=== PATIENT | male | born 1970 | race Caucasian/White ===

== ENCOUNTER 2019-04-01 21:04 | Observation (INO) | payer OTHER ==
[~2019-04-01] VITALS: Ht 177.8 cm; Wt 95.0 kg
[2019-04-02] VITALS (7 sets, daily range): BP systolic 113–131; BP diastolic 67–79; PULSE 50–67; RESP 18–20; Ht 177.8 cm; Wt 95.0 kg
--- NOTE | 2019-04-02 03:07 | ERD ---
ER Documentation Chief Complaint Chief Complaint INTERMITTENT CHEST DISCOMFORT X 1 WEEK, DX'D WITH "AN" ARRYTHMIA? HPI This a 48-year-old male with intermittent chest discomfort on and off for the past week that are worse today. Pain is pressure-like substernal nonexertional position no exacerbating relieving factors. Denies fevers or chills. Denies nausea vomiting. Denies any palpitations. Denies any other current complaints. ROS All systems reviewed and are negative except as per history of present illness. Allergies Allergies: Coded Allergies: No Known Allergy (Unverified , 04/01/19) PMhx/Soc Medical and Surgical Hx: pt denies Surgical Hx History of Surgery: No Anesthesia Reaction: No Hx Neurological Disorder: No Hx Respiratory Disorders: No Hx Cardiac Disorders: Yes (HTN) Hx Psychiatric Problems: No Hx Miscellaneous Medical Probl: No Hx Alcohol Use: No Hx Substance Use: No Hx Tobacco Use: No Smoking Status: Never smoker Physical Exam Vitals Vital Signs Date Temp Pulse Resp B/P (MAP) Pulse Ox O2 O2 Flow FiO2 Time Delivery Rate 04/02/19 97.9 59 18 106/57 100 02:28 (73) 04/01/19 97.9 78 18 165/85 100 21:08 (111) Physical Exam Const: No acute distress Head: Atraumatic Eyes: Normal Conjunctiva ENT: Normal External Ears, Nose and Mouth. Neck: Full range of motion. No meningismus. Resp: Clear to auscultation bilaterally Cardio: Regular rate and rhythm, no murmurs Abd: Soft, non tender, non distended. Normal bowel sounds Skin: No petechiae or rashes Back: No midline or flank tenderness Ext: No cyanosis, or edema Neur: Awake and alert Psych: Normal Mood and Affect Result Diagram: 04/01/19224904/01/192249 Results 24 hrs Laboratory Tests Test 04/01/19 22:50 White Blood Count 9.0 10^3/ul Red Blood Count 4.43 10^6/ul Hemoglobin 14.1 g/dl Hematocrit 40.2 % Mean Corpuscular Volume 90.7 fl Mean Corpuscular Hemoglobin 31.8 pg Mean Corpuscular Hemoglobin Concent 35.1 g/dl Red Cell Distribution Width 12.2 % Platelet Count 262 10^3/UL Mean Platelet Volume 11.7 fl Immature Granulocytes % 0.200 % Neutrophils % 64.1 % Lymphocytes % 21.2 % Monocytes % 11.2 % Eosinophils % 2.5 % Basophils % 0.8 % Nucleated Red Blood Cells % 0.0 /100WBC Immature Granulocytes # 0.020 10^3/ul Neutrophils # 5.8 10^3/ul Lymphocytes # 1.9 10^3/ul Monocytes # 1.0 10^3/ul Eosinophils # 0.2 10^3/ul Basophils # 0.1 10^3/ul Nucleated Red Blood Cells # 0.0 10^3/ul Sodium Level 141 mmol/L Potassium Level 3.9 mmol/L Chloride Level 105 mmol/L Carbon Dioxide Level 27 mmol/L Anion Gap 9 Blood Urea Nitrogen 28 mg/dl Creatinine 1.50 mg/dl Est Glomerular Filtrat Rate mL/min 50 mL/min Glucose Level 124 mg/dl Calcium Level 9.1 mg/dl Total Bilirubin 0.4 mg/dl Direct Bilirubin 0.00 mg/dl Indirect Bilirubin 0.4 mg/dl Aspartate Amino Transf (AST/SGOT) 37 IU/L Alanine Aminotransferase (ALT/SGPT) 34 IU/L Alkaline Phosphatase 98 IU/L Troponin I < 0.012 ng/ml B-Type Natriuretic Peptide 36 PG/ML Total Protein 8.1 g/dl Albumin 4.3 g/dl Globulin 3.80 g/dl Albumin/Globulin Ratio 1.13 Procedures/MDM EKG: Rate/Rhythm: [Normal Sinus Rhythm] QRS, ST, T-waves: [No changes consistent w/ acute ischemia] Impression: [No evidence of ischemia or arrhythmia] Chest X-ray 1V Interpreted by me: Soft Tissue: No acute abnormalities Bones: No acute abnormalities Mediastinum/Cardiac Silhouette/Lungs: [No acute abnormalities] Patient's symptoms are concerning for cardiac cause will require inpatient workup and continuous monitoring. Further w/u for ischemia, arrhythmia, PE or dissection will be deferred to the inpatient team. Accepting Care Team: Current data and ongoing care discussed. Time: 3 AM Primary Provider: Dr. Meehan Consulting: Deferred to inpatient team Outstanding Data: none Departure Diagnosis: Primary Impression: Chest pain Chest pain type: unspecified Qualified Codes: R07.9 - Chest pain, unspecified Condition: Serious GREG GARCIA Apr 02, 2019 03:07
[2019-04-02] MEDS ORDERED: ACETAMINOPHEN 325 MG TAB PO PRN ×2 (03:30→10:00)
[2019-04-02] MEDS ORDERED: ONDANSETRON 4 MG INJ IV PRN ×2 (03:30→10:00)
[2019-04-02] MEDS ORDERED: NACL 0.9% 3 ML SYG IV SCH (10:00)
--- NOTE | 2019-04-02 11:33 | QN ---
Documentation Comment PT SEEN and examiend HUANG MEYERS MD Apr 02, 2019 11:33
[2019-04-02] MEDS ORDERED: AL HYDROX/MG HYDROX/SIMETH 30 ML CUP PO PRN (12:00)
[2019-04-02] MEDS ORDERED: PANTOPRAZOLE (EC) 40 MG TAB PO SCH (12:30)
--- NOTE | 2019-04-02 14:07 | HP ---
DATE OF ADMISSION: 04/02/2019 REASON FOR ADMISSION: Chest discomfort. HISTORY OF PRESENTING ILLNESS: This is a 48-year-old male with a past medical history of hypertensio n who presented to the emergency department complaining of chest soreness and chest discomfort for th e past 2 to 3 days. According to the patient, he has been seeing his primary care doctor and had cheri d him he had some heartburn issues. He was told that he had inflammation of the esophagus. He is cu rrently not on medication though. He was also seen by compliance field technician as an outpatient and was told sumaya t he had abnormal heart rhythm. For the last 2 to 3 days, he has been having intermittent left-sided chest discomfort, lot of burping, some gastric reflux which made him worried and came to the emergen cy department. The patient has been working in the gym for the last 3 to 4 months and has good exerc ise tolerance. Yesterday, the patient said that he had some spicy food at the [employer] [place] [employer] [place] this probably made it worse lately. Lately, he had been feeling woozy with this medication amlodip ine which was started. Denies any nausea, vomiting. Denies any hematemesis, any melena, any bright red per rectum. Denies any shortness of breath, any lower extremity edema. On arrival to ED, [facility] temperature was 97.9, pulse 78, respirations 18, initial blood pressure was 165/85. Troponin was 0 .024, CK 219, creatinine 1.5. LFTs within normal limit. The patient had chest x-ray that showed no acute cardiopulmonary abnormality. EKG showed right bundle branch block and the patient was admitted for further management. PAST MEDICAL HISTORY: 1. Hypertension. 2. GERD. ALLERGIES: None. PAST SURGICAL HISTORY: He has a right foot surgery. SOCIAL HISTORY: Denies any history of smoking, alcohol or any drug use. FAMILY HISTORY: Significant for diabetes in the mother. REVIEW OF SYSTEMS: The patient complained of some heartburn issues, some bloating. Denies any hemat emesis, any melena, any bright red blood per rectum. Denies any headache, any blurry vision. Denies any focal neurological deficits. Denies any shortness of breath, any lower extremity edema. PHYSICAL EXAMINATION: VITAL SIGNS: Currently, blood pressure 128/79, heart rate of 58, afebrile, respiratory rate 20. GENERAL: The patient is awake, alert, oriented, very muscular built. HEENT: Pupils are equal, round, reactive to light. NECK: Supple. No JVD. HEART: Regular rate and rhythm. LUNGS: Clear to auscultate bilaterally. ABDOMEN: Soft, nontender, nondistended. Some positive bowel sounds. EXTREMITIES: No clubbing, cyanosis or edema. LABORATORY DATA: Creatinine of 1.50. Troponin less than 0.024. White count 9.0, hemoglobin 14.1. DIAGNOSTIC DATA: Chest x-ray is negative. EKG showed right bundle branch block. ASSESSMENT AND PLAN: This is a 48-year-old male who presented with: 1. Left-sided chest discomfort after eating with [place] food and history of gastroesophageal reflu x disease. EKG shows right bundle branch block. Chest x-ray is within normal limit. Need to rule ou t acute coronary syndrome versus gastritis and esophagitis. 2. Elevated creatinine. I do not have any baseline creatinine. The patient is very muscular. We n eed check for statin levels. 3. Hypertension. PLAN: At this period of time, the patient will be admitted to telemetry. We will continue the patie nt on aspirin, PPI, Mylanta. We will get an echo, get serial troponins. We will call cardiology con sultation and GI consultation. Rest of the treatment will depend on the patient's hospitalization thong rodriguez. Dictated By: HUANG AL/DORIE Conf#: [id number] DID#: [id number] CC: MARTIN MARSHALL MD; ANTONIA MURPHY MD;*End*
[2019-04-02] MEDS ORDERED: NITROGLYCERIN (SL) 0.4 MG TAB SL PRN (14:30)
--- NOTE | 2019-04-02 17:12 | CONS ---
Assessment/Plan Assessment/Plan Hospital Course (Demo Recall) Summary Assessment and Plan: Assessment: Chest pain -Cardiac vs GI etiology- patient states pain has improve with PPI History of GERD History of irregular heart rhythm? Hypertension-takes losartan/Norvasc at home Plan: Allow cardiac work-up if negative will proceed with EGD when cleared by cardio PPI/Carafate Further recommendations based on clinical course Patient seen in collaboration with Dr. Cardenas CC: JERRY CARDENAS MD ; Consultation Date/Type/Reason Admit Date/Time Apr 02, 2019 at 03:05 Date of Consultation: Apr 02, 2019 Type of Consult GI Reason for Consultation Chest pain Date/Time of Note DATE: 04/02/19 TIME: 16:56 Hx of Present Illness This is a 48-year-old male with past medical history of hypertension who was admitted for chest pain discomfort x2 to 3 days. He was previously seen by cardiology as an outpatient and told he had abnormal rhythm. Of note for the past few days patient has been complaining of reflux, burping and intermittent left-sided chest discomfort. Patient notes pain is worse with spicy food. He is currently not on any medication for reflux symptoms. He was previously told by his primary care doctor that he had GERD with inflammation of the esophagus. He currently denies nausea/vomiting, hematemesis, melena, or hematochezia. Past Medical History Home Meds No Active Prescriptions or Reported Meds Medications Current Medications IV Flush (NS 3 ml) 3 ml PER PROTOCOL IV ; Start 04/02/19 at 10:00 Ondansetron HCl (Zofran Inj) 4 mg Q6H PRN IV NAUSEA/VOMITING; Start 04/02/19 at 10:00 Acetaminophen (Tylenol Tab) 650 mg Q6H PRN PO .PAIN 1-3 OR TEMP; Start 04/02/19 at 10:00 Pantoprazole (Protonix Tab) 40 mg DAILY@06 PO Last administered on 04/02/19at 13:30; Admin Dose 40 MG; Start 04/02/19 at 12:30 Aspirin (Halfprin) 81 mg DAILY PO ; Start 04/03/19 at 09:00 Al Hydrox/Mg Hydrox/Simethicone (Mag-Al Plus) 30 ml Q4H PRN PO GASTROINTESTINAL UPSET; Start 04/02/19 at 12:00 Nitroglycerin (Nitroglycerin (Sl Tab) 0.4 Mg) 1 tab Q5M PRN SL ANGINA; Start 04/02/19 at 14:30 Allergies: Coded Allergies: No Known Allergy (Unverified , 04/02/19) Social History Smoking Status: Never smoker Exam/Review of Systems Exam Vitals Vital Signs Date Temp Pulse Resp B/P (MAP) Pulse Ox O2 O2 Flow FiO2 Time Delivery Rate 04/02/19 60 16:29 04/02/19 98.1 20 117/69 96 Room Air 15:46 (85) Exam PHYSICAL EXAMINATION: GENERAL: Alert & oriented x 3, in no acute distress SKIN: No lesions HEAD: Normocephalic, atraumatic, no tenderness. EYES: Pupils equal reactive to light and accommodation, no discharge. EARS/NOSE AND THROAT: Ears normal, nose normal, oropharynx normal. NECK: Supple, no masses. CHEST: Inspection within normal limits. CARDIOVASCULAR: Heart: Regular rate and rhythm RESPIRATORY: Lungs clear to auscultation GASTROINTESTINAL AND LIVER: Abdomen: Soft, epigastric/chest discomfort-improved, non-distended, no guarding, no rebound tenderness, normoactive bowel sounds. Rectal: Deferred. EXTREMITIES: No cyanosis, clubbing or edema. Results Result Diagram: 04/01/19224904/01/192249 Results 24hrs Laboratory Tests Test 04/01/19 22:50 04/02/19 04:34 04/02/19 09:53 White Blood Count 9.0 Red Blood Count 4.43 L Hemoglobin 14.1 Hematocrit 40.2 L Mean Corpuscular Volume 90.7 Mean Corpuscular Hemoglobin 31.8 Mean Corpuscular Hemoglobin Concent 35.1 Red Cell Distribution Width 12.2 Platelet Count 262 Mean Platelet Volume 11.7 H Immature Granulocytes % 0.200 Neutrophils % 64.1 Lymphocytes % 21.2 Monocytes % 11.2 H Eosinophils % 2.5 Basophils % 0.8 Nucleated Red Blood Cells % 0.0 Immature Granulocytes # 0.020 Neutrophils # 5.8 Lymphocytes # 1.9 Monocytes # 1.0 H Eosinophils # 0.2 Basophils # 0.1 Nucleated Red Blood Cells # 0.0 Sodium Level 141 Potassium Level 3.9 Chloride Level 105 Carbon Dioxide Level 27 Anion Gap 9 Blood Urea Nitrogen 28 H Creatinine 1.50 H Est Glomerular Filtrat Rate mL/min 50 L Glucose Level 124 Calcium Level 9.1 Total Bilirubin 0.4 Direct Bilirubin 0.00 Indirect Bilirubin 0.4 Aspartate Amino Transf (AST/SGOT) 37 Alanine Aminotransferase (ALT/SGPT) 34 Alkaline Phosphatase 98 Troponin I < 0.012 0.024 < 0.012 B-Type Natriuretic Peptide 36 Total Protein 8.1 Albumin 4.3 Globulin 3.80 H Albumin/Globulin Ratio 1.13 Creatine Kinase 219 H 194 Creatine Kinase Index 0.5 0.6 Creatinine Kinase MB (Mass) 1.20 1.20 Medications Medication Current Medications IV Flush (NS 3 ml) 3 ml PER PROTOCOL IV ; Start 04/02/19 at 10:00 Ondansetron HCl (Zofran Inj) 4 mg Q6H PRN IV NAUSEA/VOMITING; Start 04/02/19 at 10:00 Acetaminophen (Tylenol Tab) 650 mg Q6H PRN PO .PAIN 1-3 OR TEMP; Start 04/02/19 at 10:00 Pantoprazole (Protonix Tab) 40 mg DAILY@06 PO Last administered on 04/02/19at 13:30; Admin Dose 40 MG; Start 04/02/19 at 12:30 Aspirin (Halfprin) 81 mg DAILY PO ; Start 04/03/19 at 09:00 Al Hydrox/Mg Hydrox/Simethicone (Mag-Al Plus) 30 ml Q4H PRN PO GASTROINTESTINAL UPSET; Start 04/02/19 at 12:00 Nitroglycerin (Nitroglycerin (Sl Tab) 0.4 Mg) 1 tab Q5M PRN SL ANGINA; Start 04/02/19 at 14:30 ZO JOSEPH Apr 02, 2019 17:06
--- NOTE | 2019-04-02 17:44 | CONS ---
DATE OF ADMISSION: 04/02/2019 DATE OF CONSULTATION: 04/02/2019 REASON FOR CONSULTATION: Chest pain, assess for acute coronary syndrome. REQUESTING PHYSICIAN: Dr. Nancy Meyers HISTORY OF PRESENT ILLNESS: Mr. Higgins is a 48-year-old male with diagnosis of hypertension since the age of 32, who presented with complaints of substernal chest pain. The patient describes chest pain as intermittent, as a dull pain that radiates across his chest at rest. The patient states that he d oes do exercise at the gym, running on the treadmill multiple times and has no chest pains with this since the onset of chest pain. The patient has done exercise without worsening of chest pain. The p atient states that chest pain has improved with burps and belching. Upon arrival to the emergency department, temperature 97.9, blood pressure 165/85, pulse 78, respirat ions 18, satting 100%. The patient's labs are notable for sodium of 141, potassium 3.9, creatinine 1 .5, BUN 28; troponin negative, BNP of 36. The patient's chest x-ray revealed no acute cardiopulmonar y abnormalities. The patient's electrocardiogram revealed normal sinus rhythm at a rate of 76 with a right bundle branch block, secondary repolarization abnormalities. The patient was subsequently adm itted to the floor and since admit to the floor has had some intermittent chest pain. Monitored tele metry revealed sinus rhythm, no significant arrhythmias or pauses. PAST MEDICAL HISTORY: As above in the HPI. MEDICATIONS CURRENTLY IN THE HOSPITAL: 1. Aspirin 81 mg daily. 2. Protonix 40 mg daily. 3. Zofran p.r.n. 4. Tylenol p.r.n. ALLERGIES: NO KNOWN DRUG ALLERGIES. SOCIAL HISTORY: No tobacco. Social ETOH. No illicit drug use. FAMILY HISTORY: No history of sudden cardiac or early CAD. REVIEW OF SYSTEMS: As above in the HPI. CONSTITUTIONAL: No fevers or chills. PULMONARY: No current shortness of breath. CARDIOVASCULAR: Intermittent chest pain. GASTROINTESTINAL: No vomiting. GENITOURINARY: No hematuria. MUSCULOSKELETAL: No significant myalgias or arthralgias. ENDOCRINE: No documented history of diabetes mellitus. PHYSICAL EXAMINATION: VITAL SIGNS: Temperature of 97.9, blood pressure 131/77, pulse 69, respiratory rate 20, satting 99%. GENERAL: The patient is alert, awake, in no acute distress. NECK: JVP approximately 8 to 9 cm of water. CHEST: Fair air movement throughout. HEART: Bradycardic, irregular rhythm. Normal S1 and S2. A I/ systolic murmur. Nondisplaced PMI. ABDOMEN: Positive bowel sounds. Soft. EXTREMITIES: No edema, 1+ pulses bilateral posterior tibial. LABORATORY DATA: Labs most recently from today: Troponins negative times a total of 3 with the last 2 five hours apart. ELECTROCARDIOGRAM: As above in the HPI. No further electrocardiograms for my review at this time. IMPRESSION: 1. Chest pain, assess for acute coronary syndrome, with somewhat atypical symptomatology for cardiac etiology at this time. 2. Abnormal electrocardiogram with a right bundle branch block pattern. Assess for structural heart disease. 3. Renal failure. 4. History of hypertension with currently reasonable blood pressure. 5. Bradycardia, mild, consistent with sinus bradycardia. RECOMMENDATIONS: 1. At this time, we would maintain the patient on telemetry monitoring to follow rhythm and rate con trol closely. 2. We would send one additional troponin to assure the patient's chest pain was not due to an acute coronary syndrome such as an acute myocardial infarction. 3. We will follow patient's 2D echo done for assessment of ejection fraction, wall motion abnormalit y, structural heart disease in this patient with right bundle block. 4. We would check a TSH to be sure subclinical hypothyroid is not contributing to any bouts of elise arrhythmia at this time. 5. We will give patient sublingual nitroglycerin for any recurrent episodes of chest pain. 6. Continue patient's aspirin at this time. 7. We would continue the patient's PPI and follow the current symptoms. 8. If patient's echo returns without significant abnormalities and final troponin returns negative, patient will likely be reasonable for further outpatient evaluation including outpatient stress testi ng. This has been communicated with the patient and patient was given a card to obtain appropriate f ollowup. Thank you for allowing me to take part in the care of this patient. I will continue to follow along very closely with you, with further recommendations to be made as the patient progresses through the inpatient hospital clinical course. Dictated By: ANTONIA WILSON/DORIE Conf#: [id number] DID#: [id number] CC: NANCY MEYERS; MARTIN MARSHALL MD;*EndCC*
[2019-04-02] MEDS: SUCRALFATE (100 MG/ML) 10ML CUP PO SCH (22:37)
[2019-04-02] MEDS: PANTOPRAZOLE (EC) 40 MG TAB PO SCH (22:38)
[2019-04-03] VITALS (12 sets, daily range): BP systolic 110–137; BP diastolic 65–85; PULSE 47–67; RESP 16–18
[2019-04-03] MEDS ORDERED: SODIUM POLYSTYRENE 15 GM KIT (POWDER + SORBITOL) PO ONE (08:00)
[2019-04-03] MEDS: SUCRALFATE (100 MG/ML) 10ML CUP PO SCH ×4 (08:39→20:00)
[2019-04-03] MEDS: PANTOPRAZOLE (EC) 40 MG TAB PO SCH ×2 (08:40→20:01)
[2019-04-03] MEDS: ASPIRIN (EC) 81 MG TAB PO SCH (08:40)
[2019-04-03] MEDS: AMLODIPINE 10 MG TAB PO SCH (08:49)
[2019-04-03] MEDS: LOSARTAN 50 MG TAB PO SCH (08:49)
--- NOTE | 2019-04-03 10:51 | CONS ---
Consult Date/Type/Reason Admit Date/Time Apr 02, 2019 at 03:05 Initial Consult Date 04/02/19 Date/Time of Note DATE: 04/03/19 TIME: 10:50 Subjective NO acute events - CP free ROS: No fever, no chills, no nausea, no vomiting, no diarrhea/constipation No recent weight changes No chest pain, no PND, no orthopnea No dizziness, blurred vision No thirst, no heat or cold intolerance Objective Vitals Vital Signs Date Temp Pulse Resp B/P (MAP) Pulse Ox O2 O2 Flow FiO2 Time Delivery Rate 04/03/19 63 137/85 08:48 (102) 04/03/19 98.8 16 98 07:58 04/02/19 Room Air 15:46 Intake and Output 04/02/19 04/02/19 04/03/19 1515:00 23:00 07:00 IntakeIntake Total 960 ml BalanceBalance 960 ml Exam General: WN/WD/NAD, AOx 3 HEENT: Unicetric/atraumatic/EOMI (follow commands) NECK: JVD elevated, no thyromegaly Lymph: no lymphadenopathy HEART: regular with no S3, II/ systolic murmur at apex LUNGS: Coarse sounds ABD: soft, NT, ND, +BS : Intact Neuro: non focal SKIN: chronic changes EXT: trace edema Results/Medications Result Diagram: 04/03/1962804/03/19 0629 Results 24 hrs Laboratory Tests Test 04/02/19 16:29 04/03/19 06:29 Creatine Kinase 174 Creatine Kinase Index 0.6 Creatinine Kinase MB (Mass) 1.06 Troponin I < 0.012 White Blood Count 7.8 Red Blood Count 4.75 Hemoglobin 14.6 Hematocrit 43.1 Mean Corpuscular Volume 90.7 Mean Corpuscular Hemoglobin 30.7 Mean Corpuscular Hemoglobin Concent 33.9 Red Cell Distribution Width 12.5 Platelet Count 257 Mean Platelet Volume 11.7 H Immature Granulocytes % 0.400 Neutrophils % 56.8 Lymphocytes % 27.3 Monocytes % 10.2 Eosinophils % 4.4 Basophils % 0.9 Nucleated Red Blood Cells % 0.0 Immature Granulocytes # 0.030 Neutrophils # 4.4 Lymphocytes # 2.1 Monocytes # 0.8 Eosinophils # 0.3 Basophils # 0.1 Nucleated Red Blood Cells # 0.0 Sodium Level 141 Potassium Level 5.3 H Chloride Level 105 Carbon Dioxide Level 30 Anion Gap 6 Blood Urea Nitrogen 17 # Creatinine 1.13 Est Glomerular Filtrat Rate mL/min > 60 Glucose Level 104 Hemoglobin A1c 5.6 Calcium Level 9.7 Triglycerides Level 135 Cholesterol Level 158 LDL Cholesterol, Calculated 103 HDL Cholesterol 28 Cholesterol/HDL Ratio 5.6 Home Meds No Active Prescriptions or Reported Meds Medications Current Medications IV Flush (NS 3 ml) 3 ml PER PROTOCOL IV ; Start 04/02/19 at 10:00 Ondansetron HCl (Zofran Inj) 4 mg Q6H PRN IV NAUSEA/VOMITING; Start 04/02/19 at 10:00 Acetaminophen (Tylenol Tab) 650 mg Q6H PRN PO .PAIN 1-3 OR TEMP; Start 04/02/19 at 10:00 Aspirin (Halfprin) 81 mg DAILY PO ; Start 04/03/19 at 09:00 Al Hydrox/Mg Hydrox/Simethicone (Mag-Al Plus) 30 ml Q4H PRN PO GASTROINTESTINAL UPSET; Start 04/02/19 at 12:00 Nitroglycerin (Nitroglycerin (Sl Tab) 0.4 Mg) 1 tab Q5M PRN SL ANGINA; Start 04/02/19 at 14:30 Pantoprazole (Protonix Tab) 40 mg BID PO Last administered on 04/03/19at 08:40; Admin Dose 40 MG; Start 04/02/19 at 21:00 Sucralfate (Carafate Susp) 1 gm QID PO Last administered on 04/03/19at 08:39; Admin Dose 1 GM; Start 04/02/19 at 21:00 Losartan Potassium (Cozaar) 100 mg DAILY PO Last administered on 04/03/19at 08:49; Admin Dose 100 MG; Start 04/03/19 at 09:00 Amlodipine Besylate (Norvasc) 10 mg DAILY PO Last administered on 04/03/19at 08:49; Admin Dose 10 MG; Start 04/03/19 at 09:00 Assessment/Plan Hospital Course (Demo Recall) 1. Chest pain, assess for acute coronary syndrome, with somewhat atypical symptomatology for cardiac etiology at this time. R/O CA - doubt ACs - outpt re- scarification advised. 2. Abnormal electrocardiogram with a right bundle branch block pattern. Assess for structural heart disease.Treated. 3. Renal failure - Cr better at 1.13. 4. History of hypertension with currently reasonable blood pressure. 5. Bradycardia, mild, consistent with sinus bradycardia. No indiction for pacer. KAMLESH VELEZ MD Apr 03, 2019 10:51
--- NOTE | 2019-04-03 11:52 | PN ---
Date/Time of Note Date/Time of Note DATE: 04/03/19 TIME: 11:45 Assessment/Plan VTE Prophylaxis Risk score (from Ns)>0 risk: 1 SCD applied (from Ns): Yes Pharmacological prophylaxis: other (scds) Lines/Catheters IV C[facility]from [facility] Saline Lock Assessment/Plan Hospital Course Summary Assessment and Plan: Assessment: Chest pain- resolved -Cardiac vs GI etiology- patient states pain has improve with PPI History of GERD History of irregular heart rhythm? Hypertension-takes losartan/Norvasc at home YAZ- improved Plan: 2D echo-pending Allow cardiac work-up if negative and patient cleared by Cardio will proceed with EGD in-pt vs out-pt PPI/Carafate Patient seen in collaboration with Dr. Cardenas Subjective: Course reviewed with nursing staff Patient interviewed and examined All labs, imaging and other results reviewed The patient feels well, currently no complaints. He denies nausea/vomiting He does note minimal epigastric discomfort with greasy food. Discussed with patient - awaiting for 2D echo- results- if cleared by cardio plan for EGD either as in-pt or can be done as an out-pt. PHYSICAL EXAMINATION: GENERAL: Alert & oriented x 3, in no acute distress SKIN: No lesions HEAD: Normocephalic, atraumatic, no tenderness. EYES: Pupils equal reactive to light and accommodation, no discharge. EARS/NOSE AND THROAT: Ears normal, nose normal, oropharynx normal. NECK: Supple, no masses. CHEST: Inspection within normal limits. CARDIOVASCULAR: Heart: Regular rate and rhythm RESPIRATORY: Lungs clear to auscultation GASTROINTESTINAL AND LIVER: Abdomen: Soft, epigastric/chest discomfort-resolved, non-distended, no guarding, no rebound tenderness, normoactive bowel sounds. Rectal: Deferred. EXTREMITIES: No cyanosis, clubbing or edema. Result Diagram: 04/03/19 0629 04/03/19 0629 Results 24hrs Laboratory Tests Test 04/02/19 16:29 04/03/19 06:29 Creatine Kinase 174 Creatine Kinase Index 0.6 Creatinine Kinase MB (Mass) 1.06 Troponin I < 0.012 White Blood Count 7.8 Red Blood Count 4.75 Hemoglobin 14.6 Hematocrit 43.1 Mean Corpuscular Volume 90.7 Mean Corpuscular Hemoglobin 30.7 Mean Corpuscular Hemoglobin Concent 33.9 Red Cell Distribution Width 12.5 Platelet Count 257 Mean Platelet Volume 11.7 H Immature Granulocytes % 0.400 Neutrophils % 56.8 Lymphocytes % 27.3 Monocytes % 10.2 Eosinophils % 4.4 Basophils % 0.9 Nucleated Red Blood Cells % 0.0 Immature Granulocytes # 0.030 Neutrophils # 4.4 Lymphocytes # 2.1 Monocytes # 0.8 Eosinophils # 0.3 Basophils # 0.1 Nucleated Red Blood Cells # 0.0 Sodium Level 141 Potassium Level 5.3 H Chloride Level 105 Carbon Dioxide Level 30 Anion Gap 6 Blood Urea Nitrogen 17 # Creatinine 1.13 Est Glomerular Filtrat Rate mL/min > 60 Glucose Level 104 Hemoglobin A1c 5.6 Calcium Level 9.7 Triglycerides Level 135 Cholesterol Level 158 LDL Cholesterol, Calculated 103 HDL Cholesterol 28 Cholesterol/HDL Ratio 5.6 Exam/Review of Systems Exam Vitals Vital Signs Date Temp Pulse Resp B/P (MAP) Pulse Ox O2 O2 Flow FiO2 Time Delivery Rate 04/03/19 97.8 63 16 123/75 93 11:21 (91) 04/02/19 Room Air 15:46 Intake and Output 04/02/19 04/02/19 04/03/19 1515:00 23:00 07:00 IntakeIntake Total 960 ml BalanceBalance 960 ml Results Results 24hrs Laboratory Tests Test 04/02/19 16:29 04/03/19 06:29 Creatine Kinase 174 Creatine Kinase Index 0.6 Creatinine Kinase MB (Mass) 1.06 Troponin I < 0.012 White Blood Count 7.8 Red Blood Count 4.75 Hemoglobin 14.6 Hematocrit 43.1 Mean Corpuscular Volume 90.7 Mean Corpuscular Hemoglobin 30.7 Mean Corpuscular Hemoglobin Concent 33.9 Red Cell Distribution Width 12.5 Platelet Count 257 Mean Platelet Volume 11.7 H Immature Granulocytes % 0.400 Neutrophils % 56.8 Lymphocytes % 27.3 Monocytes % 10.2 Eosinophils % 4.4 Basophils % 0.9 Nucleated Red Blood Cells % 0.0 Immature Granulocytes # 0.030 Neutrophils # 4.4 Lymphocytes # 2.1 Monocytes # 0.8 Eosinophils # 0.3 Basophils # 0.1 Nucleated Red Blood Cells # 0.0 Sodium Level 141 Potassium Level 5.3 H Chloride Level 105 Carbon Dioxide Level 30 Anion Gap 6 Blood Urea Nitrogen 17 # Creatinine 1.13 Est Glomerular Filtrat Rate mL/min > 60 Glucose Level 104 Hemoglobin A1c 5.6 Calcium Level 9.7 Triglycerides Level 135 Cholesterol Level 158 LDL Cholesterol, Calculated 103 HDL Cholesterol 28 Cholesterol/HDL Ratio 5.6 Medications Medication Current Medications IV Flush (NS 3 ml) 3 ml PER PROTOCOL IV ; Start 04/02/19 at 10:00 Ondansetron HCl (Zofran Inj) 4 mg Q6H PRN IV NAUSEA/VOMITING; Start 04/02/19 at 10:00 Acetaminophen (Tylenol Tab) 650 mg Q6H PRN PO .PAIN 1-3 OR TEMP; Start 04/02/19 at 10:00 Aspirin (Halfprin) 81 mg DAILY PO ; Start 04/03/19 at 09:00 Al Hydrox/Mg Hydrox/Simethicone (Mag-Al Plus) 30 ml Q4H PRN PO GASTROINTESTINAL UPSET; Start 04/02/19 at 12:00 Nitroglycerin (Nitroglycerin (Sl Tab) 0.4 Mg) 1 tab Q5M PRN SL ANGINA; Start 04/02/19 at 14:30 Pantoprazole (Protonix Tab) 40 mg BID PO Last administered on 04/03/19at 08:40; Admin Dose 40 MG; Start 04/02/19 at 21:00 Sucralfate (Carafate Susp) 1 gm QID PO Last administered on 04/03/19at 08:39; Admin Dose 1 GM; Start 04/02/19 at 21:00 Losartan Potassium (Cozaar) 100 mg DAILY PO Last administered on 04/03/19at 08:49; Admin Dose 100 MG; Start 04/03/19 at 09:00 Amlodipine Besylate (Norvasc) 10 mg DAILY PO Last administered on 04/03/19at 08:49; Admin Dose 10 MG; Start 04/03/19 at 09:00 ZO JOSEPH Apr 03, 2019 11:52
--- NOTE | 2019-04-03 14:36 | PN ---
Date/Time of Note Date/Time of Note DATE: 04/03/19 TIME: 14:34 Assessment/Plan VTE Prophylaxis Risk score (from Nsg)>0 risk: 1 SCD applied (from Nsg): Yes Pharmacological prophylaxis: NA/contraindicated Pharm contraindication: low risk/ambulating Lines/Catheters IV Catheter Type (from Nrsg): Saline Lock Assessment/Plan Assessment/Plan This is a 48-year-old male who presented with: 1. Left-sided chest discomfort after eating with [place] food and history of gastroesophageal reflux disease. EKG shows right bundle branch block. Chest x- ray is within normal limit. Need to rule out acute coronary syndrome versus gastritis and esophagitis. 2. Acute renal failure resolved Cr 1.5>/1.13 3. Hypertension. Plan -Echo is pending -EGD likely tomorrow based on echo results -Troponins have been negative -Agree with PPI/sucralfate Continue with losartan/amlodipine Result Diagram: 04/03/19 0629 04/03/19 0629 Results 24hrs Laboratory Tests Test 04/02/19 16:29 04/03/19 06:29 Creatine Kinase 174 Creatine Kinase Index 0.6 Creatinine Kinase MB (Mass) 1.06 Troponin I < 0.012 White Blood Count 7.8 Red Blood Count 4.75 Hemoglobin 14.6 Hematocrit 43.1 Mean Corpuscular Volume 90.7 Mean Corpuscular Hemoglobin 30.7 Mean Corpuscular Hemoglobin Concent 33.9 Red Cell Distribution Width 12.5 Platelet Count 257 Mean Platelet Volume 11.7 H Immature Granulocytes % 0.400 Neutrophils % 56.8 Lymphocytes % 27.3 Monocytes % 10.2 Eosinophils % 4.4 Basophils % 0.9 Nucleated Red Blood Cells % 0.0 Immature Granulocytes # 0.030 Neutrophils # 4.4 Lymphocytes # 2.1 Monocytes # 0.8 Eosinophils # 0.3 Basophils # 0.1 Nucleated Red Blood Cells # 0.0 Sodium Level 141 Potassium Level 5.3 H Chloride Level 105 Carbon Dioxide Level 30 Anion Gap 6 Blood Urea Nitrogen 17 # Creatinine 1.13 Est Glomerular Filtrat Rate mL/min > 60 Glucose Level 104 Hemoglobin A1c 5.6 Calcium Level 9.7 Triglycerides Level 135 Cholesterol Level 158 LDL Cholesterol, Calculated 103 HDL Cholesterol 28 Cholesterol/HDL Ratio 5.6 Subjective 24 Hr Interval Summary Free Text/Dictation Patient said that the chest pain felt better once the PPI and other medications were started. Echo is pending Exam/Review of Systems Exam Vitals Vital Signs Date Temp Pulse Resp B/P (MAP) Pulse Ox O2 O2 Flow FiO2 Time Delivery Rate 04/03/19 65 12:54 04/03/19 97.8 16 123/75 93 11:21 (91) 04/02/19 Room Air 15:46 Intake and Output 04/02/19 04/02/19 04/03/19 1515:00 23:00 07:00 IntakeIntake Total 960 ml BalanceBalance 960 ml Exam GENERAL: The patient is awake, alert, oriented, very muscular built. HEENT: Pupils are equal, round, reactive to light. NECK: Supple. No JVD. HEART: Regular rate and rhythm. LUNGS: Clear to auscultate bilaterally. ABDOMEN: Soft, nontender, nondistended. Some positive bowel sounds. EXTREMITIES: No clubbing, cyanosis or edema. Results Results 24hrs Laboratory Tests Test 04/02/19 16:29 04/03/19 06:29 Creatine Kinase 174 Creatine Kinase Index 0.6 Creatinine Kinase MB (Mass) 1.06 Troponin I < 0.012 White Blood Count 7.8 Red Blood Count 4.75 Hemoglobin 14.6 Hematocrit 43.1 Mean Corpuscular Volume 90.7 Mean Corpuscular Hemoglobin 30.7 Mean Corpuscular Hemoglobin Concent 33.9 Red Cell Distribution Width 12.5 Platelet Count 257 Mean Platelet Volume 11.7 H Immature Granulocytes % 0.400 Neutrophils % 56.8 Lymphocytes % 27.3 Monocytes % 10.2 Eosinophils % 4.4 Basophils % 0.9 Nucleated Red Blood Cells % 0.0 Immature Granulocytes # 0.030 Neutrophils # 4.4 Lymphocytes # 2.1 Monocytes # 0.8 Eosinophils # 0.3 Basophils # 0.1 Nucleated Red Blood Cells # 0.0 Sodium Level 141 Potassium Level 5.3 H Chloride Level 105 Carbon Dioxide Level 30 Anion Gap 6 Blood Urea Nitrogen 17 # Creatinine 1.13 Est Glomerular Filtrat Rate mL/min > 60 Glucose Level 104 Hemoglobin A1c 5.6 Calcium Level 9.7 Triglycerides Level 135 Cholesterol Level 158 LDL Cholesterol, Calculated 103 HDL Cholesterol 28 Cholesterol/HDL Ratio 5.6 Medications Medication Current Medications IV Flush (NS 3 ml) 3 ml PER PROTOCOL IV ; Start 04/02/19 at 10:00 Ondansetron HCl (Zofran Inj) 4 mg Q6H PRN IV NAUSEA/VOMITING; Start 04/02/19 at 10:00 Acetaminophen (Tylenol Tab) 650 mg Q6H PRN PO .PAIN 1-3 OR TEMP; Start 04/02/19 at 10:00 Aspirin (Halfprin) 81 mg DAILY PO ; Start 04/03/19 at 09:00 Al Hydrox/Mg Hydrox/Simethicone (Mag-Al Plus) 30 ml Q4H PRN PO GASTROINTESTINAL UPSET; Start 04/02/19 at 12:00 Nitroglycerin (Nitroglycerin (Sl Tab) 0.4 Mg) 1 tab Q5M PRN SL ANGINA; Start 04/02/19 at 14:30 Pantoprazole (Protonix Tab) 40 mg BID PO Last administered on 04/03/19at 08:40; Admin Dose 40 MG; Start 04/02/19 at 21:00 Sucralfate (Carafate Susp) 1 gm QID PO Last administered on 04/03/19at 12:36; Admin Dose 1 GM; Start 04/02/19 at 21:00 Losartan Potassium (Cozaar) 100 mg DAILY PO Last administered on 04/03/19at 08:49; Admin Dose 100 MG; Start 04/03/19 at 09:00 Amlodipine Besylate (Norvasc) 10 mg DAILY PO Last administered on 04/03/19at 08:49; Admin Dose 10 MG; Start 04/03/19 at 09:00 HUANG MEYERS MD Apr 03, 2019 14:36
--- NOTE | 2019-04-03 14:58 | RADRPT ---
Echocardiogram Report Patient Name: ASHLEE SCHMITZPatient ID: [id number] : 1970 (48y 9m)Study Date: 04/02/2019 2:05:38 PM Gender: MAccession #: [id number] Tech: Nate Mills [facility] Location: [facility] Ref.Physician: HUANG MEYERS Height(Cm): BSA: Weight(Kg): Quality: AdequateOrder Physician: HUANG MEYERS Account #: Procedures: Echocardiographic Report: Transthoracic echocardiogram with complete 2D, M-Mode, and doppler examination. Indications: Chest Pain. Measurements: 2D/M Mode Doppler Measurement Value Normal Range Measurement Value Normal Range LVIDd 2D 4.7 [ 4.2 - 5.8 ] cm AV Peak Chriss 1.8 [ 100.0 - 170.0 ] cm/sec LVIDs 2D 3.0 [ 2.5 - 4.0 ] cm AV Peak PG 13.0 [ 2.0 - 9.0 ] mmHg LVPWd 2D 0.9 [ 0.6 - 1.0 ] cm LVOT Peak Chriss 1.5 [ 70.0 - 110.0 ] cm/sec IVSd 2D 1.4 [ 0.6 - 1.0 ] cm LVOT Peak PG 8.0 [ 2.0 - 6.0 ] mmHg AoR Diam 2D 3.2 [ 2.6 - 3.4 ] cm MV E Peak Chriss 1.0 [ 60.0 - 130.0 ] cm/sec EDV 2D 101.0 [ 62.0 - 150.0 ] ml MV A Peak Chriss 1.1 [ 100.0 - 120.0 ] cm/sec ESV 2D 34.2 [ 21.0 - 61.0 ] ml MV E/A 1.0 [ 0.8 - 1.5 ] ratio EF 2D 66.1 [ 52.0 - 72.0 ] percent MV Decel Time 215 [ 104 - 258 ] msec LA Dimen 2D 3.5 [ 3.0 - 4.0 ] cm Lat E` Chriss 0.2 [ 10.0 - 15.0 ] cm/sec Lateral E/E` 5.7 [ 1.0 - 2.0 ] ratio MV E/A 1.0 [ 0.8 - 1.5 ] ratio TR Peak Chriss 2.2 [ 100.0 - 280.0 ] cm/sec TR Peak PG 20.0 mmHg RVSP 23.0 [ 10.0 - 36.0 ] mmHg Findings: Left Ventricle: Normal left ventricular systolic function. Normal left ventricular cavity size. Sigmoid septum. Ejection fraction is visually estimated at 60 %. Tissue Doppler/Mitral Doppler indices are consistent with pseudonormalization with mildly elevated left atrial pressure (Stage II diastolic dysfunction). Right Ventricle: Normal right ventricular size. Normal right ventricular systolic function. Left Atrium: The left atrium is normal in size. Right Atrium: The right atrium is normal in size. Mitral Valve: Mild mitral leaflet calcification. Mild mitral annular calcification. Trace mitral regurgitation. Aortic Valve: No significant aortic stenosis or insufficiency. Aortic cusps appear mildly calcified. Tricuspid Valve: Normal appearance of the tricuspid valve. The estimated Peak RVSP is 23 mmHg. There is trace tricuspid regurgitation. Pericardium: Normal pericardium with no significant pericardial effusion. Aorta: Normal aortic root. IVC: Normal size and normal respiratory collapse consistent with normal right atrial pressure. Conclusions: Normal left ventricular systolic function. Normal left ventricular cavity size. Sigmoid septum. Ejection fraction is visually estimated at 60 %. Tissue Doppler/Mitral Doppler indices are consistent with pseudonormalization with mildly elevated left atrial pressure (Stage II diastolic dysfunction). Mild mitral leaflet calcification. Mild mitral annular calcification. Trace mitral regurgitation. Normal appearance of the tricuspid valve. The estimated Peak RVSP is 23 mmHg. There is trace tricuspid regurgitation. Electronically Signed By: Marcel Mathews 2019-04-03 14:57:10 PDT
--- NOTE | 2019-04-03 16:53 | RADRPT ---
Vent Rate: 51 bpm RR Interval: 1184 msec [place] Interval: 161 msec QRS Duration: 132 msec QT Interval: 431 msec QTC Interval: 396 msec P-R-T Bledsoe: 46 - 78 - 53 degrees Sinus rhythm...normal P axis, V-rate 50- 99 Right bundle branch block...QRSd>120, terminal axis(90,270) Inferior infarct, acute...ST>0.10mV, T upright, II III aVF ST elevation, consider lateral injury...ST >0.10mV, I aVL V5 V6 Electronically Signed By: Owen Sylvester
[2019-04-04] VITALS (21 sets, daily range): BP systolic 91–139; BP diastolic 46–87; PULSE 47–81; RESP 18–23
[2019-04-04] MEDS: SUCRALFATE (100 MG/ML) 10ML CUP PO SCH (09:00)
[2019-04-04] MEDS: LOSARTAN 50 MG TAB PO SCH (09:00)
[2019-04-04] MEDS: AMLODIPINE 10 MG TAB PO SCH (09:00)
[2019-04-04] MEDS: ASPIRIN (EC) 81 MG TAB PO SCH (09:17)
[2019-04-04] MEDS: PANTOPRAZOLE (EC) 40 MG TAB PO SCH ×2 (09:17→20:09)
--- NOTE | 2019-04-04 12:03 | PREAC ---
Date/Time of Note Date/Time of Note DATE: 04/04/19 TIME: 12:02 Anesthesia Eval and Record Evaluation Time Pre-Procedure Interview DATE: 04/04/19 TIME: 12:02 Age 48 Sex male NPO: 8 hrs Preoperative diagnosis chest soreness and chest discomfort Planned procedure EGD Past Medical History Past Medical History: Includes Cardio: HTN GI: GERD Surgery & Anesthesia Issues No known issue Meds Anticoagulation: No Beta Terrell within 24 hr: No Reason Beta Terrell not given: Pt. not on B-Terrell No Active Prescriptions or Reported Meds Current Medications IV Flush (NS 3 ml) 3 ml PER PROTOCOL IV ; Start 04/02/19 at 10:00 Ondansetron HCl (Zofran Inj) 4 mg Q6H PRN IV NAUSEA/VOMITING; Start 04/02/19 at 10:00 Acetaminophen (Tylenol Tab) 650 mg Q6H PRN PO .PAIN 1-3 OR TEMP; Start 04/02/19 at 10:00 Aspirin (Halfprin) 81 mg DAILY PO Last administered on 04/04/19at 09:17; Admin Dose 81 MG; Start 04/03/19 at 09:00 Al Hydrox/Mg Hydrox/Simethicone (Mag-Al Plus) 30 ml Q4H PRN PO GASTROINTESTINAL UPSET; Start 04/02/19 at 12:00 Nitroglycerin (Nitroglycerin (Sl Tab) 0.4 Mg) 1 tab Q5M PRN SL ANGINA; Start 04/02/19 at 14:30 Pantoprazole (Protonix Tab) 40 mg BID PO Last administered on 04/04/19at 09:17; Admin Dose 40 MG; Start 04/02/19 at 21:00 Sucralfate (Carafate Susp) 1 gm QID PO Last administered on 04/03/19at 20:00; Admin Dose 1 GM; Start 04/02/19 at 21:00 Losartan Potassium (Cozaar) 100 mg DAILY PO Last administered on 04/03/19at 08:49; Admin Dose 100 MG; Start 04/03/19 at 09:00 Amlodipine Besylate (Norvasc) 10 mg DAILY PO Last administered on 04/03/19at 08:49; Admin Dose 10 MG; Start 04/03/19 at 09:00 Meds reviewed: Yes Allergies Coded Allergies: No Known Allergy (Unverified , 04/04/19) Allergies Reviewed: Yes Labs/Studies Labs Reviewed: Reviewed by anesthesiologist Result Diagram: 04/03/19 0629 04/04/19 1106 Laboratory Tests 04/04/19 11:06 test: N/A Studies: ECG (SR), CXR (No acute cardiopulmonary abnormality.), 2D Echo (60% EF) Pre-procedure Exam Last vitals Vital Signs Date Temp Pulse Resp B/P (MAP) Pulse Ox O2 O2 Flow FiO2 Time Delivery Rate 04/04/19 98.5 64 20 127/87 96 Room Air 11:29 (100) Airway: Adequate mouth opening Mallampati: Mallampati II Teeth: Normal Lung: Normal Heart: Normal ASA Physical Status ASA physical status: 2 Emergency: None Planned Anesthetic General/MAC: MAC Pre-operative Attestations Prior to commencing anesthesia and surgery, the patient was re-evaluated, there was verification of: *The patient's identity *The results of appropriate recent lab work and preoperative vital signs *The above evaluation not changing prior to induction *Anesthetic plan, risk benefits, alternative and complications discussed with patient/family; questions answered; patient/family understands, accepts and wishes to proceed. FRANCES LI Apr 04, 2019 12:03
[2019-04-04] MEDS: SUCRALFATE 1 GM TAB PO SCH ×3 (12:15→20:09)
--- NOTE | 2019-04-04 13:31 | PN ---
Date/Time of Note Date/Time of Note DATE: 04/04/19 TIME: 13:31 Assessment/Plan VTE Prophylaxis Risk score (from Nsg)>0 risk: 2 SCD applied (from Nsg): No SCD contraindicated: low risk/ambulating Pharmacological prophylaxis: NA/contraindicated Pharm contraindication: low risk/ambulating Lines/Catheters IV [facility] Peripheral IV Assessment/Plan Assessment/Plan is is a 48-year-old male who presented with: 1. Left-sided chest discomfort after eating with [place] food and history of gastroesophageal reflux disease. EKG shows right bundle branch block. Chest x- ray is within normal limit. NEG FOR ACS , likely GERD/Oesophagitis 2. Acute renal failure resolved Cr 1.5>/1.13 3. Hypertension. Plan -Echo normal limit -EGD today -Troponins have been negative -Agree with PPI/sucralfate Continue with losartan, DC amlodipine due to low blood pressures DC pending planning EGD today Result Diagram: 04/03/19 0629 04/04/19 1106 Results 24hrs Laboratory Tests Test 04/04/19 11:06 Sodium Level 144 Potassium Level 3.9 Chloride Level 105 Carbon Dioxide Level 27 Anion Gap 12 Blood Urea Nitrogen 13 Creatinine 1.07 Est Glomerular Filtrat Rate mL/min > 60 Glucose Level 93 Calcium Level 9.3 Subjective 24 Hr Interval Summary Free Text/Dictation Burping. EGD today Exam/Review of Systems Exam Vitals Vital Signs Date Temp Pulse Resp B/P (MAP) Pulse Ox O2 O2 Flow FiO2 Time Delivery Rate 04/04/19 98.5 64 20 127/87 96 Room Air 11:29 (100) Intake and Output 04/03/19 04/03/19 04/04/19 1515:00 23:00 07:00 IntakeIntake Total 1200 ml 750 ml BalanceBalance 1200 ml 750 ml Exam GENERAL: The patient is awake, alert, oriented, very muscular built. HEENT: Pupils are equal, round, reactive to light. NECK: Supple. No JVD. HEART: Regular rate and rhythm. LUNGS: Clear to auscultate bilaterally. ABDOMEN: Soft, nontender, nondistended. Some positive bowel sounds. EXTREMITIES: No clubbing, cyanosis or edema. Results Results 24hrs Laboratory Tests Test 04/04/19 11:06 Sodium Level 144 Potassium Level 3.9 Chloride Level 105 Carbon Dioxide Level 27 Anion Gap 12 Blood Urea Nitrogen 13 Creatinine 1.07 Est Glomerular Filtrat Rate mL/min > 60 Glucose Level 93 Calcium Level 9.3 Medications Medication Current Medications IV Flush (NS 3 ml) 3 ml PER PROTOCOL IV ; Start 04/02/19 at 10:00 Ondansetron HCl (Zofran Inj) 4 mg Q6H PRN IV NAUSEA/VOMITING; Start 04/02/19 at 10:00 Acetaminophen (Tylenol Tab) 650 mg Q6H PRN PO .PAIN 1-3 OR TEMP; Start 04/02/19 at 10:00 Aspirin (Halfprin) 81 mg DAILY PO Last administered on 04/04/19 09:17; Admin Dose 81 MG; Start 04/03/19 at 09:00 Al Hydrox/Mg Hydrox/Simethicone (Mag-Al Plus) 30 ml Q4H PRN PO GASTROINTESTINAL UPSET; Start 04/02/19 at 12:00 Nitroglycerin (Nitroglycerin (Sl Tab) 0.4 Mg) 1 tab Q5M PRN SL ANGINA; Start 04/02/19 at 14:30 Pantoprazole (Protonix Tab) 40 mg BID PO Last administered on 04/04/19 09:17; Admin Dose 40 MG; Start 04/02/19 at 21:00 Losartan Potassium (Cozaar) 100 mg DAILY PO Last administered on 04/03/19at 08:49; Admin Dose 100 MG; Start 04/03/19 at 09:00 Amlodipine Besylate (Norvasc) 10 mg DAILY PO Last administered on 04/03/19 08:49; Admin Dose 10 MG; Start 04/03/19 at 09:00 Sucralfate (Carafate) 1 gm QID PO Last administered on 04/04/19 12:15; Admin Dose 1 GM; Start 04/04/19 at 13:00 HUANG MEYERS MD Apr 04, 2019 13:31
--- NOTE | 2019-04-04 13:33 | PDOCDIS ---
Discharge Instructions DIAGNOSIS Discharge Diagnosis s/p EGD Atypical cp CONDITION [id number] Patient Condition: [id number] Fair HOME CARE INSTRUCTIONS: [id number] Diet Instructions: [id number] Reduced Calorie ACTIVITY: [id number] Activity Restrictions: [id number] Slowly Increase Activity Rest between Activity Avoid heavy lifting FOLLOW UP/APPOINTMENTS Follow-up Plan fu PCP in 1-2 weeks fu GI in 2-3 weeks return to ER if has severe abdominal pain/ vommting/ hematemesis/[place] HUANG MEYERS MD Apr 04, 2019 13:33
[2019-04-04] MEDS ORDERED: DOCU-144 PO (13:36)
[2019-04-04] MEDS ORDERED: PANT40TA4 PO (13:36)
[2019-04-04] MEDS ORDERED: UDMYL PO (13:36)
[2019-04-04] MEDS ORDERED: LOSA50TA2 PO (13:36)
--- NOTE | 2019-04-04 13:45 | CONS ---
Assessment/Plan Assessment/Plan Hospital Course (Demo Recall) IMPRESSION: 1. Chest pain, assess for acute coronary syndrome, with somewhat atypical symptomatology for cardiac etiology at this time.-neg trop x 3 2. Abnormal electrocardiogram with a right bundle branch block pattern. Assess for structural heart disease. NL EF by echo 3. Renal failure. 4. History of hypertension with currently reasonable blood pressure. 5. Bradycardia, mild, consistent with sinus bradycardia. Recc: -OK for d/c from cardiac standpoint. Reasonable for outpatient stress testing and patient given card to obtain follow-up appointment -Consider d/c norvasc and continue monotherapy with losartan Consultation Date/Type/Reason Admit Date/Time Apr 02, 2019 at 03:05 Initial Consult Date 04/02/19 Type of Consult Cardiology Reason for Consultation Chest pain Requesting Provider: MARTIN MARSHALL Date/Time of Note DATE: 04/04/19 TIME: 13:41 Exam/Review of Systems Vital Signs Vitals Vital Signs Date Temp Pulse Resp B/P (MAP) Pulse Ox O2 O2 Flow FiO2 Time Delivery Rate 04/04/19 98.5 64 20 127/87 96 Room Air 11:29 (100) Intake and Output 04/03/19 04/03/19 04/04/19 1515:00 23:00 07:00 IntakeIntake Total 1200 ml 750 ml BalanceBalance 1200 ml 750 ml Exam Exam Review of Systems: CONSTITUTIONAL: No fevers, chills. PULMONARY: No sob CARDIOVASCULAR: No chest pain/palpitations GASTROINTESTINAL: burping/belching. Some abd pain GENITOURINARY: No hematuria/dysuria. MUSCULOSKELETAL: No myagias/arthalgias. PSYCHIATRIC: The patient denies depression. NEUROLOGIC: No weakness Constitutional: alert Psych: no complaints Head: normocephalic ENMT: mucosa pink and moist Neck: supple, jvd (8 cm water) Respiratory: clear to auscultation Cardiovascular: other (bradycardic, regular rhythm) Gastrointestinal: soft, non-tender Musculoskeletal: muscle tone Extremities: edema (none) Neurological: other (No focal deficits) Labs Result Diagram: 04/03/19 0629 04/04/19 1106 Results 24hrs Laboratory Tests Test 04/04/19 11:06 Sodium Level 144 Potassium Level 3.9 Chloride Level 105 Carbon Dioxide Level 27 Anion Gap 12 Blood Urea Nitrogen 13 Creatinine 1.07 Est Glomerular Filtrat Rate mL/min > 60 Glucose Level 93 Calcium Level 9.3 Medications Medications Current Medications IV Flush (NS 3 ml) 3 ml PER PROTOCOL IV ; Start 04/02/19 at 10:00 Ondansetron HCl (Zofran Inj) 4 mg Q6H PRN IV NAUSEA/VOMITING; Start 04/02/19 at 10:00 Acetaminophen (Tylenol Tab) 650 mg Q6H PRN PO .PAIN 1-3 OR TEMP; Start 04/02/19 at 10:00 Aspirin (Halfprin) 81 mg DAILY PO Last administered on 04/04/19 09:17; Admin Dose 81 MG; Start 04/03/19 at 09:00 Al Hydrox/Mg Hydrox/Simethicone (Mag-Al Plus) 30 ml Q4H PRN PO GASTROINTESTINAL UPSET; Start 04/02/19 at 12:00 Nitroglycerin (Nitroglycerin (Sl Tab) 0.4 Mg) 1 tab Q5M PRN SL ANGINA; Start 04/02/19 at 14:30 Pantoprazole (Protonix Tab) 40 mg BID PO Last administered on 04/04/19at 09:17; Admin Dose 40 MG; Start 04/02/19 at 21:00 Losartan Potassium (Cozaar) 100 mg DAILY PO Last administered on 04/03/19at 08:49; Admin Dose 100 MG; Start 04/03/19 at 09:00 Amlodipine Besylate (Norvasc) 10 mg DAILY PO Last administered on 04/03/19 08:49; Admin Dose 10 MG; Start 04/03/19 at 09:00 Sucralfate (Carafate) 1 gm QID PO Last administered on 04/04/19at 12:15; Admin Dose 1 GM; Start 04/04/19 at 13:00 ANTONIA MURPHY Apr 04, 2019 13:45
[2019-04-04] MEDS ORDERED: PROPOFOL 40 ML ONE (18:38)
[2019-04-04] MEDS ORDERED: LIDOCAINE 2% (SDV) 5 ML INJ ONE (18:38)
--- NOTE | 2019-04-04 19:00 | PAC ---
Date/Time of Note Date/Time of Note DATE: 04/04/19 TIME: 18:59 Post-Anesthesia Notes Post-Anesthesia Note Last documented vital signs Vital Signs Date Temp Pulse Resp B/P (MAP) Pulse Ox O2 O2 Flow FiO2 Time Delivery Rate 04/04/19 97.5 61 20 135/71 98 Room Air 17:26 (92) Activity: WNL Respiratory function: WNL Cardiovascular function: WNL Mental status: Baseline Pain reasonably controlled: Yes Hydration appropriate: Yes Nausea/Vomiting absent: Yes Comments BP:102/64, P:68, Spo2:100%, T:98,8 ARTIS RODRIGUEZ MD Apr 04, 2019 19:00
== END 2019-04-04 20:10 | disposition home or self-care (01) ==
LOC: E/R 21:04 → TEL 04-02 03:05 → EDBEDREQ 04-02 07:04
PROVIDERS: ADMIT Internal Medicine Nephrology; ATTEND Internal Medicine Nephrology
DX: R07.9 Chest pain, unspecified (principal); K29.70 Gastritis, unspecified, without bleeding; I10 Essential (primary) hypertension; K21.9 Gastro-esophageal reflux disease without esophagitis
CPT/HCPCS: 36415; 43239; 71045; 80048; 80053; 80061; 82550; 82553; 83036; 83880; 84484; 85025; 88305; 88312; 93005; 93306; Z7500; Z7502; Z7610; G0378